=== PATIENT | male | born 1960 ===

== ENCOUNTER 2022-08-24 16:01 | Outpatient (CLI) | payer SELFPAY | END 2022-08-24 23:59 | disposition short-term general hospital (02) | LOC: EMS 16:01 | DX: S01.81XA Laceration without foreign body of other part of head, initial encounter (principal); S01.511A Laceration without foreign body of lip, initial encounter; S01.411A Laceration without foreign body of right cheek and temporomandibular area, initial encounter; S50.812A Abrasion of left forearm, initial encounter; M25.431 Effusion, right wrist; V18.4XXA Pedal cycle driver injured in noncollision transport accident in traffic accident, initial encounter; Y93.55 Activity, bike riding; Y92.413 State road as the place of occurrence of the external cause | CPT/HCPCS: A0425; A0429 ==